=== PATIENT | female | born 1980 | race Caucasian/White ===

== ENCOUNTER 2018-07-02 08:27 | Emergency (ER) | payer OTHER ==
[2018-07-02 08:43] VITALS: BP 133/92
--- NOTE | 2018-07-02 09:08 | UC ---
[facility] HPI - HPI Summary HPI Summary: Pt c/o gradual onset of left upper teeth pain that began last evening. Pt stated she took " a lot of ibuprofen last night" with no improvement. Pt woke this morning with left side swollen cheek and worsening dental pain. Pt unable to make dental appointment over weekend. - History of Current Complaint Chief Complaint: UCDentalProblem Stated Complaint: DENTAL Time Seen by Provider: 07/02/18 08:57 Hx Obtained From: Patient Hx Last Menstrual Period: 05/30/18 ?: No Onset/Duration: Gradual Onset, Still Present, Worse Since - onset Severity: Severe Pain Intensity: 10 Aggravating Factor(s): Cold, Chewing Related History: Swelling - Allergies/Home Medications Allergies/Adverse Reactions: Allergies Allergy/AdvReac Type Severity Reaction Status Date / Time No Known Allergies Allergy Verified 07/02/18 08:40 Home Medications: Home Medications Ibuprofen TAB* [Advil TAB*] 800 mg PO Q6H PRN 07/02/18 [History Confirmed ] PMH/Surg Hx/FS Hx/Imm Hx Previously Healthy: Yes - Surgical History Surgical History: None - Family History Known Family History: Negative: Diabetes, Respiratory Disease - Social History Occupation: Employed Full-time Lives: With Family Alcohol Use: Occasionally Alcohol Amount: couple a week Substance Use Type: None Smoking Status (MU): Former Smoker Type: Cigarettes Have You Smoked in the Last Year: No When Did the Patient Quit Smoking/Using Tobacco: 9 years ago Review of Systems All Other Systems Reviewed And Are Negative: Yes Constitutional: Positive: Fatigue Skin: Positive: Negative Eyes: Positive: Negative ENT: Positive: Dental Pain Respiratory: Positive: Negative Cardiovascular: Positive: Negative Gastrointestinal: Positive: Negative Genitourinary: Positive: Negative Motor: Positive: Negative Neurovascular: Positive: Negative Musculoskeletal: Positive: Negative Neurological: Positive: Headache Psychological: Positive: Negative Is Patient Immunocompromised?: No Physical Exam Triage Information Reviewed: Yes Appearance: Pain Distress Vital Signs: Initial Vital Signs Temp 97.6 F 07/02/18 08:40 Pulse 77 07/02/18 08:40 Resp 16 07/02/18 08:40 BP 133/92 07/02/18 08:40 Pulse Ox 99 07/02/18 08:40 Vital Signs Reviewed: Yes Eye Exam: Normal ENT: Positive: Hearing grossly normal Dental: Positive: Percussion Tenderness @ - left upper teeth,, Abscess @, Other : - left facial cheek swelling, pronounced Neck exam: Normal Respiratory Exam: Normal Cardiovascular Exam: Normal Musculoskeletal Exam: Normal Neurological Exam: Normal Psychological Exam: Normal Skin Exam: Normal Dental Complaint Course/Dx - Differential Dx/Diagnosis Differential Diagnosis/Dx: Dental Abscess, Dental Caries, Odontogenic Pain, Peridontic Disease Provider Diagnosis: Dental abscess Discharge - Sign-Out/Discharge Documenting (check all that apply): Patient Departure All imaging exams completed and their final reports reviewed: No Studies - Discharge Plan Condition: Stable Disposition: HOME Prescriptions: Amoxicillin PO (*) [Amoxicillin 875 MG (*)] 875 mg PO Q12H #20 tab predniSONE TAB* [Deltasone 10 MG TAB*] 30 mg PO DAILY #12 tab traMADol TAB* [Ultram*] 50 mg PO Q12H PRN #6 tab MDD 2 PRN Reason: Pain Patient Education Materials: Dental Abscess (ED) Forms: *Work Release Referrals: Mariano Lay MD [Primary Care Provider] - If Needed - Billing Disposition and Condition Condition: STABLE Disposition: Home - Attestation Statements Provider Attestation: I was available for consult. This patient was seen by the SHANE. The patient was not presented to, seen by, or examined by me. EK
== END 2018-07-02 09:28 | disposition home or self-care (01) ==
LOC: UCCORT 08:27
DX: K04.7 Periapical abscess without sinus (principal)
CPT/HCPCS: 99212; G0463